=== PATIENT | male | born 1985 | race Caucasian/White ===

== ENCOUNTER 2023-10-12 18:53 | Emergency (ER) | payer OTHER ==
[~2023-10-12] VITALS: Ht 180.3 cm; Wt 100.0 kg
[2023-10-12 19:01] VITALS: O2SAT 100
[2023-10-12] MEDS ORDERED: SODIUM CHLORIDE 0.9% 1,000 ML IV ONE (20:45)
[2023-10-12 21:54] VITALS: TEMP 98.2
[2023-10-12 22:42] LABS: HEMATOCRIT. 42.5 % (42.0-52.0); HEMOGLOBIN. 14.6 g/dL (14.0-18.0); MEAN CORPUSCULAR HEMOGLOBIN 31.3 pg (28.0-32.0); MEAN CORPUSCULAR HGB CONC 34.3 g/dL (31.0-37.0); MEAN CORPUSCULAR VOLUME 91.3 fL (80.0-94.0); MEAN PLATELET VOLUME 8.2 fl (7.4-10.4); PLATELET 275 x1000/uL (130-400); RED BLOOD CELL COUNT 4.66 mill/uL (4.7-6.1); RED CELL DISTRIBUTION WIDTH 13.4 % (11.6-14.6); WHITE BLOOD COUNT 11.5 x1000/uL (4.5-11.0)
[2023-10-12 22:49] LABS: DIFFERENTIAL COMMENT 1
[2023-10-12 22:57] LABS: ALANINE AMINOTRANSFERASE 27 IU/L (10-49); ALBUMIN 3.8 g/dL (3.2-4.8); ASPARTATE AMINOTRANSFERASE 20 IU/L (<34); BETA HYDROXYBUTYRATE 0.7 mMol/L (0.0-0.3); BILIRUBIN TOTAL 1.2 mg/dL (0.1-1.0); CALCIUM 8.3 mg/dL (8.7-10.4); CARBON DIOXIDE 26 mEq/L (21-32); CHLORIDE 103 mEq/L (98-107); CREATININE 0.8 mg/dL (0.6-1.3); GLUCOSE 303 mg/dL (70-105); POTASSIUM 4.5 mEq/L (3.5-5.1); PROTEIN TOTAL 6.6 g/dL (6.0-8.3); SODIUM 137 mEq/L (136-145); UREA NITROGEN BLOOD 8 mg/dL (9-23)
[2023-10-13 01:54] VITALS: BP 142/75; PULSE 99; RESP 17
[2023-10-13 07:57] LABS: PLATELET ESTIMATE NORMAL
== END 2023-10-13 02:42 | disposition home or self-care (01) ==
LOC: ER 18:53
DX: E11.649 Type 2 diabetes mellitus with hypoglycemia without coma (principal)
CPT/HCPCS: 99283; 80053; 82010; 83690; 85025; 36415; J7030